=== PATIENT | female | born 1970 | race Caucasian/White ===

== ENCOUNTER 2019-03-24 01:45 | Emergency (ER) | payer SELFPAY ==
[~2019-03-24] VITALS: Ht 162.6 cm; Wt 70.8 kg
--- OUTSIDE RECORDS SUMMARY | 2019-03-24 01:48 | XMS REPORT ---
Author Author [facility] Address Unknown Phone Unavailable Care Team Providers Care Final Inspector Movement Assembly Name Role Phone Unavailable Unavailable Problems This patient has no known problems. Allergies, Adverse Reactions, Alerts This patient has no known allergies or adverse reactions. Medications This patient has no known medications. Encounters Start Date/Time End Date/Time Encounter Type Admission Type Attending [facility] Care Department Encounter ID 2017-12-04 04:11:44 2017-12-04 04:11:44 Emergency [facility] [id number] 2017-11-25 06:55:04 2017-11-25 06:55:04 Emergency [facility] [id number] 2017-02-25 00:00:00 2017-02-26 00:00:00 Outpatient [facility] [id number]
--- OUTSIDE RECORDS SUMMARY | 2019-03-24 01:48 | XMS REPORT | Clinical Summary ---
Author Author [facility] Address Unknown Phone Unavailable Care Team Providers Care Recycling Operations Manager Name Role Phone Asked, No Pcp PCP Unavailable Allergies Comments Active Allergy Reactions Severity Noted Date unknown Meperidine Other (See 08/10/2017 Comments) Medications No known medications Active Problems Problem Noted Date Fever and chills 03/15/2019 Encounters Care Team Description Date Type Specialty Madhu Elizabeth MD Bokhari, Syed Muhammad Javed, MD Fever and chills (Primary Dx); Nausea and vomiting, intractability of vomiting not specified, unspecified vomiting type; Lactic acidosis 03/15/2019 [facility] General Internal Medicine - Encounter 03/17/2019 after 03/23/2018 Social History Date Tobacco Use Types Packs/Day Years Used Current Every Day Smoker Cigarettes 1 Smokeless Tobacco: Never Used Alcohol Use Drinks/Week oz/Week Comments Yes 6 beers a day Sex Assigned at Date Recorded Not on file Industry Job Start Date Occupation Not on file Not on file Not on file Travel End Travel History Travel Start No recent travel history available. Last Filed Vital Signs Time Taken Vital Sign Reading 03/17/2019 2:40 PM CDT Blood Pressure 100/63 03/17/2019 2:40 PM CDT Pulse 78 03/17/2019 2:40 PM CDT Temperature 35.7 C (96.2 F) 03/17/2019 2:40 PM CDT Respiratory Rate 18 03/17/2019 2:40 PM CDT Oxygen Saturation 96% - Inhaled Oxygen - Concentration 03/16/2019 1:27 AM CDT Weight 72.6 kg (160 lb) 03/15/2019 8:47 PM CDT Height 162.6 cm (5' 4") 03/15/2019 8:47 PM CDT Body Mass Index 27.46 Plan of Treatment Health Maintenance Due Date Last Done Comments INFLUENZA VACCINE 05/09/2019 Procedures Comments Procedure Name Priority Date/Time Associated Diagnosis ESTIMATED GFR Routine 03/17/2019 6:30 AM CDT BASIC METABOLIC PANEL Routine 03/17/2019 6:30 AM CDT HC COMPLETE BLD COUNT Routine 03/17/2019 W/AUTO DIFF 6:30 AM CDT GC BY PROBETEC Routine 03/17/2019 3:45 AM CDT CHLAMYDIA BY PROBETEC Routine 03/17/2019 3:45 AM CDT LACTIC ACID LEVEL, SEPSIS Timed 03/16/2019 - NOW AND REPEAT 2X EVERY 8:15 AM CDT 3 HOURS ESTIMATED GFR Routine 03/16/2019 3:48 AM CDT BASIC METABOLIC PANEL Routine 03/16/2019 3:48 AM CDT HC COMPLETE BLD COUNT Routine 03/16/2019 W/AUTO DIFF 3:48 AM CDT LACTIC ACID LEVEL, SEPSIS Timed 03/16/2019 - NOW AND REPEAT 2X EVERY 3:48 AM CDT 3 HOURS US PELVIC TRANSVAGINAL STAT 03/16/2019 3:12 AM CDT RESPIRATORY PATHOGEN Routine 03/16/2019 PANEL 2:[address] ABDOMEN PELVIS W STAT 03/15/2019 CONTRAST 11:44 PM CDT BLOOD CULTURE, AEROBIC & Routine 03/15/2019 ANAEROBIC 10:56 PM CDT BLOOD CULTURE, AEROBIC & Routine 03/15/2019 ANAEROBIC 10:30 PM CDT HCG QUALITATIVE, URINE Routine 03/15/2019 SCREEN 10:18 PM CDT URINALYSIS SCREEN AND Routine 03/15/2019 MICROSCOPY, WITH REFLEX 10:18 PM CDT TO CULTURE URINE CULTURE Routine 03/15/2019 10:17 PM CDT HC COMPLETE BLD COUNT STAT 03/15/2019 W/AUTO DIFF 10:03 PM CDT XR CHEST 1 VW PORTABLE STAT 03/15/2019 9:18 PM CDT ESTIMATED GFR STAT 03/15/2019 9:11 PM CDT LACTIC ACID LEVEL, SEPSIS STAT 03/15/2019 - NOW AND REPEAT 2X EVERY 9:11 PM CDT 3 HOURS HEPATIC FUNCTION PANEL STAT 03/15/2019 9:11 PM CDT BASIC METABOLIC PANEL STAT 03/15/2019 9:11 PM CDT VT CRITICAL CARE, E/M Routine 03/15/2019 30-74 MINUTES 8:58 PM CDT STREP SCREEN CULTURE STAT 03/15/2019 8:54 PM CDT GROUP A STREP, RAPID Routine 03/15/2019 ANTIGEN 8:54 PM CDT after 03/23/2018 Results * Estimated GFR (03/17/2019 6:30 AM CDT) Only the most recent of 3 results within the time period is included. Estimated GFR >=90 mL/min/1.73 m2 [place] Comment: [facility] G1 >=90 Normal or high G2 60-89Mildly decreased [id number] Mildly to moderately decreased [id number] Moderately to severely decreased G4 15-29Severely decreased G5 <15Kidney failure The eGFR was calculated using the Chronic Kidney Disease Epidemiology Collaboration (CKD-EPI) equation. Interpretation is based on recommendations of the National Kidney Foundation-Kidney Disease Outcomes Quality Initiative (NKF-KDOQI) published in 2014. Specimen Plasma specimen Performing Organization Address City/State/Zipcode Phone Number [facility] [address] [place] [phone] PATHOLOGY AND GENOMIC MEDICINE [place] CONFUCIANIST [place] [address] [place] [address] HOSPITAL * CBC with platelet and differential (03/17/2019 6:30 AM CDT) Only the most recent of 3 results within the time period is included. WBC 3.5 (L) 4.2 - 11.0 k/uL [facility] RBC 3.64 (L) 4.04 - 5.86 m/uL [facility] HGB 11.3 (L) 11.5 - 15.3 g/dL [facility] HCT 33.7 (L) 34.0 - 45.0 % [facility] MCV 92.6 80.0 - 98.0 fL [facility] MCH 31.0 27.0 - 34.0 pg [facility] MCHC 33.5 31.5 - 36.5 g/dL [facility] RDW - SD 41.1 37.0 - 51.0 fL [facility] MPV 10.7 (H) 7.4 - 10.4 fL [facility] Platelet count 155 150 - 400 k/uL [facility] Nucleated RBC 0.00 /100 WBC [facility] Neutrophils 80.6 (H) 36.0 - 66.0 % [facility] Lymphocytes 10.4 (L) 24.0 - 44.0 % [facility] Monocytes 8.1 (H) 0.0 - 6.0 % [facility] Eosinophils 0.3 0.0 - 6.0 % [facility] Basophils 0.3 0.0 - 1.2 % [facility] Immature 0.3 0.0 - 1.0 % [place] granulocytes [facility] Specimen Blood Performing Organization Address City/State/Zipcode Phone Number [facility] [place] DEPARTMENT OF [address] [facility] [place] [address] PATHOLOGY AND GENOMIC MEDICINE [facility] [address] [facility] [place] [address] HOSPITAL * Basic metabolic panel (03/17/2019 6:30 AM CDT) Only the most recent of 3 results within the time period is included. Sodium 133 (L) 135 - 150 mEq/L [facility] Potassium 3.3 (L) 3.5 - 5.0 mEq/L [facility] Chloride 101 98 - 112 mEq/L [facility] CO2 23 (L) 24 - 31 mmol/L [facility] Anion gap 9@ANIO 7 - 15 mEq/L [facility] BUN 6 (L) 7 - 18 mg/dL [facility] Creatinine 0.70 0.50 - 0.90 mg/dL [facility] Glucose 136 (H) 65 - 100 mg/dL [facility] Calcium 8.5 8.3 - 10.2 mg/dL [facility] Specimen Plasma specimen Performing Organization Address City/State/Zipcode Phone Number [facility] [place] DEPARTMENT OF [address] [place] [address] PATHOLOGY AND GENOMIC MEDICINE [address] * GC By ProbeTec (03/17/2019 3:45 AM CDT) Pathologist [facility] GC, ProbeTec Negative for Neisseria [place] gonorrhoeae. CONFUCIANIST Test performed by [facility], [address] [place] [address] Comment: Specimen Information Specimen Source: Cervical Specimen Site: Other- Detailed Description Required Specimen Cervical - Other- Detailed Description Required Narrative Performed At no sample in lab. [facility] DEPARTMENT OF PATHOLOGY AND GENOMIC MEDICINE Performing Organization Address City/State/Zipcode Phone Number [facility] DEPARTMENT [address] [place] [address] PATHOLOGY AND GENOMIC MEDICINE [address] * Chlamydia by ProbeTec (03/17/2019 3:45 AM CDT) Chlamydia, Negative for Chlamydia [place] ProbeTe trachomatis. CONFUCIANIST Test performed by [facility], [address] [place] [address] Comment: Specimen Information Specimen Source: Cervical Specimen Site: Other- Detailed Description Required Specimen Cervical - Other- Detailed Description Required Narrative Performed At no sample in lab. [facility] DEPARTMENT OF PATHOLOGY AND GENOMIC MEDICINE Performing Organization Address City/State/Zipcode Phone Number [facility] DEPARTMENT OF [address] [place] [address] PATHOLOGY AND GENOMIC MEDICINE [facility] [address] [place] [address] [facility] * Lactic acid level, SEPSIS - Now and repeat 2x every 3 hours (03/16/2019 8:15 AM CDT) Only the most recent of 3 results within the time period is included. Lactic acid 1.2 0.5 - 2.2 mmol/L [facility] Specimen Blood Performing Organization Address City/State/Zipcode Phone Number [facility] – [place] DEPARTMENT OF [address] [facility] [place] [address] PATHOLOGY AND GENOMIC MEDICINE [facility] [address] [place], [place] [id number] [place] [address] * US Pelvic Transvaginal (03/16/2019 3:12 AM CDT) Specimen Narrative Performed At EXAMINATION:US PELVIC TRANSVAGINAL RADIANT CLINICAL HISTORY:left-sided hydrosalpinx COMPARISON:None. TECHNIQUE:Transvaginal sonographic images of the pelvis were obtained. Grayscale, color Doppler, and spectral waveform analysis of the ovarian vessels was performed. IMPRESSION: Uterus measures 8 x 5 x 3.7 cm. Endometrial stripe measures 0.7 cm, within normal limits. No masses are seen of the uterus. A tubular fluid-filled structure is seen adjacent to the uterus on the left, concerning for hydrosalpinx. Some internal echoes are seen within, which may represent debris or evolving blood product. Left ovary measures 3.5 x 2.1 x 1.7 cm. Doppler evaluation reveals flow. The left ovary, a complex cyst is seen measuring 2 x 1.2 x 1.5 cm. Some internal echoes are seen with peripheral echogenicity. In the left ovary, a 1.5 x 1.2 x 1.1 cm simple cyst is also seen. Other small follicles are seen of the left ovary. Right ovary measures 3.9 x 2.8 x 2.6 cm. In the right ovary, a complex cystic structure is seen measuring 2.3 x 2.5 x 2.3 cm. Some internal echoes are seen with a daughter cyst within; the daughter cyst contains echoes within. No distal ureteral hydronephrosis or free intraperitoneal fluid. Summary: Complex cystic structures are seen of the ovaries bilaterally. Although not classic in appearance, these raise concern for endometriomas. Follow-up evaluation with MRI would be of benefit. Tubular fluid-filled structure adjacent to the uterus on the left is most concerning for hydrosalpinx. Some internal echoes are seen within, which may represent debris or evolving blood product. Correlation to exclude pelvic inflammatory disease is advised. This can be followed on MRI. [id number] Procedure Note [facility], Radiology Results Incoming - 03/16/2019 3:33 AM CDT EXAMINATION: US PELVIC TRANSVAGINAL CLINICAL HISTORY: left-sided hydrosalpinx COMPARISON: None. TECHNIQUE:Transvaginal sonographic images of the pelvis were obtained. Grayscale, color Doppler, and spectral waveform analysis of the ovarian vessels was performed. IMPRESSION: Uterus measures 8 x 5 x 3.7 cm. Endometrial stripe measures 0.7 cm, within normal limits. No masses are seen of the uterus. A tubular fluid-filled structure is seen adjacent to the uterus on the left, concerning for hydrosalpinx. Some internal echoes are seen within, which may represent debris or evolving blood product. Left ovary measures 3.5 x 2.1 x 1.7 cm. Doppler evaluation reveals flow. The left ovary, a complex cyst is seen measuring 2 x 1.2 x 1.5 cm. Some internal echoes are seen with peripheral echogenicity. In the left ovary, a 1.5 x 1.2 x 1.1 cm simple cyst is also seen. Other small follicles are seen of the left ovary. Right ovary measures 3.9 x 2.8 x 2.6 cm. In the right ovary, a complex cystic structure is seen measuring 2.3 x 2.5 x 2.3 cm. Some internal echoes are seen with a daughter cyst within; the daughter cyst contains echoes within. No distal ureteral hydronephrosis or free intraperitoneal fluid. Summary: Complex cystic structures are seen of the ovaries bilaterally. Although not classic in appearance, these raise concern for endometriomas. Follow-up evaluation with MRI would be of benefit. Tubular fluid-filled structure adjacent to the uterus on the left is most concerning for hydrosalpinx. Some internal echoes are seen within, which may represent debris or evolving blood product. Correlation to exclude pelvic inflammatory disease is advised. This can be followed on MRI. [facility]-[id number] Performing Organization Address City/[facility]/Zipcode Phone Number [facility] [address] [place] [address] * Respiratory pathogen panel (03/16/2019 2:49 AM CDT) Pathologist [facility] Respiratory Negative for all pathogens [place] pathogen panel tested: CONFUCIANIST Negative for Adenovirus HOSPITAL Negative for Coronavirus HKU1 Negative for Coronavirus NL63 Negative for Coronavirus 229E Negative for Coronavirus OC43 Negative for Human Metapneumovirus Negative for Rhinovirus/Enterovirus Negative for Influenza A Negative for Influenza A/H1 Negative for Influenza A/H3 Negative for Influenza A/H1-2009 Negative for Influenza B Negative for Parainfluenza Virus 1 Negative for Parainfluenza Virus 2 Negative for Parainfluenza Virus 3 Negative for Parainfluenza Virus 4 Negative for Respiratory Syncytial Virus Negative for Bordetella pertussis Negative for Chlamydophila pneumoniae Negative for Mycoplasma pneumoniae This real-time PCR assay detects the presence of nucleic acids (RNA or DNA) for the respiratory pathogens listed. A result of "Not-detected" does not exclude the possibility of the presence of one or more pathogens at concentrations less than the detectable limits of the assay. Comment: Specimen Information Specimen Source: Nares Specimen Site: Left Specimen Nares - Left Performing Organization Address [facility]/Zipcode Phone Number [facility] DEPARTMENT OF [address] [place] [address] PATHOLOGY AND GENOMIC MEDICINE [place] CONFUCIANIST [address] [place] [address] HOSPITAL * CT Abdomen Pelvis W Contrast (03/15/2019 11:44 PM CDT) Specimen Narrative Performed At EXAMINATION:CT ABDOMEN PELVIS W CONTRAST RADIANT CLINICAL HISTORY:Abd painunspecified, Nauseavomiting TECHNIQUE: Multiple axial images of the abdomen and pelvis were obtained following intravenous administration of iodinated contrast. Sagittal and coronal computerized reformatted images were also obtained. CT imaging was performed with iterative reconstruction technique and/or automated exposure control to reduce radiation dose. COMPARISON:08/11/2017 IMPRESSION: Mild bibasilar atelectasis. In the right lower lobe, a 0.7 cm nodule is seen. Liver, gallbladder, spleen, pancreas, adrenal glands are normal. Kidneys, ureters and bladder are normal. Tubular fluid-filled structure is seen of the left adnexa, most compatible with hydrosalpinx. This raises suspicion for pelvic inflammatory disease. Complex cystic structure is seen arising from the right ovary measuring 3.1 x 2.3 cm. This measures greater density than simple fluid and may represent hemorrhagic ovarian cyst. These findings would be better characterized on pelvic ultrasound. No free intraperitoneal fluid or air. Atherosclerotic vascular calcifications are seen. A few diverticula are seen without diverticulitis. Appendix is surgically absent. Air-fluid levels are seen of loops of small bowel in the peritoneal cavity, some of which are dilated to 3.3 cm. No distinct transition points is seen, these findings are thought to reflect ileus or enteritis. No acute osseous abnormalities. Mild degenerative change of the lumbar spine. Summary: Findings are suggestive of left-sided hydrosalpinx. This raises consideration for pelvic inflammatory disease, and further evaluation with pelvic ultrasound is advised. A complex cystic structure arising from right ovary measures 3.1 x 2.3 cm, and may represent hemorrhagic ovarian cyst. This would also be better characterized on pelvic ultrasound. Air-fluid levels are seen of loops of small bowel in the peritoneal cavity, some of which are dilated to 3.3 cm. No distinct transition point is seen, and these findings are thought to reflect ileus or enteritis. A 0.7 cm nodule is seen in the right lower lobe. A six-month follow-up CT chest is advised to assess stability. [id number] Procedure Note [facility], Radiology Results Incoming - 03/16/2019 12:16 AM CDT EXAMINATION: CT ABDOMEN PELVIS W CONTRAST CLINICAL HISTORY: Abd pain unspecified, Nausea vomiting TECHNIQUE: Multiple axial images of the abdomen and pelvis were obtained following intravenous administration of iodinated contrast. Sagittal and coronal computerized reformatted images were also obtained. CT imaging was performed with iterative reconstruction technique and/or automated exposure control to reduce radiation dose. COMPARISON: 08/11/2017 IMPRESSION: Mild bibasilar atelectasis. In the right lower lobe, a 0.7 cm nodule is seen. Liver, gallbladder, spleen, pancreas, adrenal glands are normal. Kidneys, ureters and bladder are normal. Tubular fluid-filled structure is seen of the left adnexa, most compatible with hydrosalpinx. This raises suspicion for pelvic inflammatory disease. Complex cystic structure is seen arising from the right ovary measuring 3.1 x 2.3 cm. This measures greater density than simple fluid and may represent hemorrhagic ovarian cyst. These findings would be better characterized on pelvic ultrasound. No free intraperitoneal fluid or air. Atherosclerotic vascular calcifications are seen. A few diverticula are seen without diverticulitis. Appendix is surgically absent. Air-fluid levels are seen of loops of small bowel in the peritoneal cavity, some of which are dilated to 3.3 cm. No distinct transition points is seen, these findings are thought to reflect ileus or enteritis. No acute osseous abnormalities. Mild degenerative change of the lumbar spine. Summary: Findings are suggestive of left-sided hydrosalpinx. This raises consideration for pelvic inflammatory disease, and further evaluation with pelvic ultrasound is advised. A complex cystic structure arising from right ovary measures 3.1 x 2.3 cm, and may represent hemorrhagic ovarian cyst. This would also be better characterized on pelvic ultrasound. Air-fluid levels are seen of loops of small bowel in the peritoneal cavity, some of which are dilated to 3.3 cm. No distinct transition point is seen, and these findings are thought to reflect ileus or enteritis. A 0.7 cm nodule is seen in the right lower lobe. A six-month follow-up CT chest is advised to assess stability. [facility]-[id number] Performing Organization Address City/[facility]/[place] [address] * Blood culture, aerobic & anaerobic (03/15/2019 10:56 PM CDT) Only the most recent of 2 results within the time period is included. Blood culture No growth after 5 days of [place] isolate incubation. CONFUCIANIST Comment: HOSPITAL Specimen Information Specimen Source: Blood Specimen Site: L A C Specimen Blood Performing Organization Address City/[facility]/Zipcode Phone Number [facility] DEPARTMENT OF [address] [place] [address] PATHOLOGY AND GENOMIC MEDICINE [address] * Urinalysis screen and microscopy, with reflex to culture (03/15/2019 10:18 PM CDT) Specimen site Clean catch [facility] Color, UA Yellow [facility] Appearance, UA Clear [facility] Specific 1.011 1.001 - 1.035 [place] gravity, UA [facility] pH, UA 7.0 5.0 - 8.5 [facility] Protein, UA Negative Negative [facility] Glucose, UA Negative Negative [facility] Ketones, UA Negative Negative [facility] Bilirubin, UA Negative Negative [facility] Blood, UA Small (A) Negative [facility] Nitrite, UA Negative Negative [facility] Urobilinogen, Negative <2.0 [facility] Leukocyte Negative Negative [place] esterase, UA [facility] Epithelial Moderate /HPF [place] cells, UA [facility] WBC, UA 1 0 - 5 /HPF [facility] RBC, UA 6 (H) 0 - 5 /HPF [facility] Bacteria, UA None seen None seen [facility] Yeast, UA None seen [facility] Yeast with None seen [place] pseudohyphae, [facility] Specimen Urine Performing Organization Address City/[facility]code Phone Number [facility] [place] DEPARTMENT OF [address] [facility] [place] [address] PATHOLOGY AND GENOMIC MEDICINE [address] [place] [address] HOSPITAL * hCG qualitative, urine screen (03/15/2019 10:18 PM CDT) hCG Negative Negative [facility] qualitative, Comment: CONFUCIANIST urine The manufacturers stated [place] sensitivity of HcG test for HOSPITAL serum is >/=10 mIU/ml and urine is >/=20mIU/ml. Specimen Urine Performing Organization Address City/[facility] Cliniccode Phone Number [facility] [address] [facility] [place] [address] PATHOLOGY AND GENOMIC MEDICINE [address] [place] [address] HOSPITAL * Urine culture (03/15/2019 10:17 PM CDT) Pathologist [facility] Urine culture SEE COMMENTComment: [place] Bacteriuria screen negative. [facility] Specimen Performing Organization Address City/[facility] Cliniccode Phone Number [facility] [place] DEPARTMENT [address] [facility] [place] [address] PATHOLOGY AND GENOMIC MEDICINE [address] [place] [phone] HOSPITAL * XR Chest 1 Vw Portable (03/15/2019 9:18 PM CDT) Specimen Narrative Performed At EXAMINATION:XR CHEST 1 [facility] CLINICAL H[facility]:SOB COMPARISON:None IMPRESSION: Mild prominence of interstitial lung markings, suggestive of mild vascular congestion/edema. Reactive airways disease or viral pneumonia could cause similar appearance. No effusions or pneumothorax. Cardiomediastinal silhouette is within normal limits. No acute osseous abnormalities. [facility]-[id number] Procedure Note Hm Interface, Radiology Results Incoming - 03/15/2019 10:00 PM CDT EXAMINATION: XR CHEST 1 VW PORTABLE CLINICAL HISTORY: SOB COMPARISON: None IMPRESSION: Mild prominence of interstitial lung markings, suggestive of mild vascular congestion/edema. Reactive airways disease or viral pneumonia could cause similar appearance. No effusions or pneumothorax. Cardiomediastinal silhouette is within normal limits. No acute osseous abnormalities. [id number] Performing Organization Address City/[facility] Phone Number [facility] [address] [place] [address] * Hepatic function panel (03/15/2019 9:11 PM CDT) Albumin 3.0 (L) 3.5 - 5.0 g/dL [facility] Total bilirubin <0.3 0.2 - 1.2 mg/dL [facility] Bilirubin <0.2 0.0 - 0.4 mg/dL [place] direct [facility] Alkaline 47 0 - 104 U/L [place] phosphatase [facility] Protein 7.0 6.3 - 8.3 g/dL [facility] ALT 23 5 - 50 U/L [facility] AST 24 10 - 35 U/L [facility] Specimen Plasma specimen Performing Organization Address City/State/Zipcode Phone Number [facility] [facility] [address] [place] [address] PATHOLOGY AND GENOMIC MEDICINE [facility] [address] [place] [address] HOSPITAL * CRITICAL CARE (03/15/2019 8:58 PM CDT) Narrative Performed At Madhu Elizabeth MD 03/15/2019 10:51 PM Critical Care Performed by: Madhu Elizabeth MD Authorized by: Madhu Elizabeth MD Critical care provider statement: Critical care time (minutes):40 Critical care time was exclusive of:Separately billable procedures and treating other patients and teaching time Critical care was necessary to treat or prevent imminent or life-threatening deterioration of the following conditions:Sepsis Critical care was time spent personally by me on the following activities:Ordering and performing treatments and interventions, ordering and review of laboratory studies, ordering and review of radiographic studies, pulse oximetry, re-evaluation of patient's condition, blood draw for specimens, development of treatment plan with patient or surrogate, evaluation of patient's response to treatment, interpretation of cardiac output measurements, obtaining history from patient or surrogate and examination of patient * Group A strep, rapid antigen (03/15/2019 8:54 PM CDT) [facility] Group A strep, Negative for Group A [place] rapid antigen Streptococcus antigen. CONFUCIANIST result Comment: [place] Specimen Information HOSPITAL Specimen Source: Throat Specimen Site: Not otherwise specified Specimen Throat - Not otherwise specified Performing Organization Address [facility] Phone Number [facility] [address] [place] [address] PATHOLOGY AND GENOMIC MEDICINE [address] * Strep screen culture (03/15/2019 8:54 PM CDT) [facility] Strep screen No beta hemolytic Streptococci [place] culture isolate isolated CONFUCIANIST Comment: HOSPITAL Specimen Information Specimen Source: Throat Specimen Site: throat Specimen Throat - Throat Performing Organization Address City/[facility]code Phone Number [facility] [address] [place] [address] PATHOLOGY AND GENOMIC MEDICINE [place] [id number] HOSPITAL after 03/23/2018 Advance Directives Patient has advance care planning documents on file. For more information, miladis naqvi contact: [employer] [address] [place] [id number]
--- NOTE | 2019-03-24 03:10 | Diagnostic Imaging Report ---
EXAMINATION: Chest PA and lateral views INDICATION: Pneumonia. Pain. ^[id number] ^[id number] COMPARISON: None FINDINGS: TUBES and LINES: None. LUNGS: Lungs are well inflated. Lungs are clear. There is no evidence of pneumonia or pulmonary edema. PLEURA: No pleural effusion or pneumothorax. HEART AND MEDIASTINUM: The cardiomediastinal silhouette is unremarkable. BONES AND SOFT TISSUES: No acute osseous lesion. Surgical clips projected on the right axillary region. UPPER ABDOMEN: No free air under the diaphragm. IMPRESSION: No acute thoracic abnormality. Signed by: Dr. Sudheer Victor M.D. on 03/24/2019 3:07 AM
== END 2019-03-24 03:15 | disposition home or self-care (01) ==
LOC: FSED 01:45
DX: L03.114 Cellulitis of left upper limb (principal); R11.0 Nausea; F17.210 Nicotine dependence, cigarettes, uncomplicated
CPT/HCPCS: 71046; 80048; 85025; 85379; 99283